=== PATIENT | female | born 1985 | race Caucasian/White ===

== ENCOUNTER 2016-09-07 01:01 | Inpatient (IN) ==
[2016-09-07] MEDS ORDERED: LACTATED RINGERS 500 ML IV PRN (01:22)
[2016-09-07] MEDS ORDERED: TERBUTALINE 1 MG/1 ML VIAL SUBCUT PRN (01:22)
[2016-09-07] MEDS ORDERED: ONDANSETRON 4 MG/2 ML VIAL IV PRN (01:22)
[2016-09-07] MEDS: LACTATED RINGERS 1,000 ML IV SCH ×3 (01:30→10:43)
[2016-09-07] MEDS: AMPICILLIN INJ 2,000 MG in SODIUM CHLORIDE 0.9% 100 ML IV SCH ×2 (02:12→07:24)
[2016-09-07 02:25] LABS: Basophils % 0.1 % (0.0-0.8); Eosinophils # 0.1 10*3/uL (0.0-0.87); Eosinophils % 0.4 % (0.00-10.9); Hematocrit 35.8 VOL% (35.7-47.0); Hemoglobin 12.2 GM/DL (12.0-16.0); Immature Granulocytes % 0.6 %; Immature Granulocytes Absolute 0.07 #; Lymphocytes # 2.3 10*3/uL (1.4-4.0); Lymphocytes % 19.6 % (21.3-54.2); Mean Corpuscular HGB Conc 34.1 GM/DL (32-36); Mean Corpuscular Hemoglobin 29 PG (27-34); Mean Corpuscular Volume 86.3 FL (87-102); Mean Platelet Volume 10.8 FL (9.6-12.0); Monocytes % 8.3 % (1.7-12.7); Neutrophils # 8.4 10*3/uL (1.4-7.4); Platelet Count 250 T/CUMM (130-400); Red Blood Count 4.15 MC/CUMM (3.8-5.5); Red Cell Distribution Width 13.8 % (9.3-17.3); White Blood Count 11.8 T/CUMM (4-12)
[2016-09-07] MEDS ORDERED: OXYTOCIN/LR 20 UNIT/1,000 ML BAG IV SCH (03:00)
[2016-09-07] MEDS: MEPERIDINE 50 MG/1 ML VIAL IV PRN ×2 (05:12→12:07)
[2016-09-07] MEDS ORDERED: FAMOTIDINE 20 MG/2 ML VIAL IV ONE (07:06)
[2016-09-07] MEDS ORDERED: hydrOXYzine HCL 25 MG/1 ML VIAL IM PRN (07:06)
[2016-09-07] MEDS ORDERED: ePHEDrine 50 MG/ML AMP IV PRN (07:06)
[2016-09-07] MEDS ORDERED: PROMETHAZINE 25 MG/1 ML VIAL IM ONE (07:06)
[2016-09-07] MEDS ORDERED: CITRIC ACID/SODIUM CITRATE 30 ML UDCUP PO ONE (07:06)
[2016-09-07] MEDS ORDERED: diphenhydrAMINE 50 MG/1 ML VIAL IV PRN (07:06)
[2016-09-07] MEDS ORDERED: fentaNYL 2 MCG/ROPIV 0.2% EPID 150 ML EPIDURAL SCH (07:06)
--- NOTE | 2016-09-07 09:11 | OB/GYN History & Physical ---
History of Present Illness Chief complaint: in for SROM @ early term History of present illness: Ms. Guidry is a 31 year old female 3 para 2 living 2. Her RAMESH is 02/2019 estimated gestational age of 37 weeks and 1 day. She presents in labor department with spontaneous rupture membranes with clear fluid at early term . The risks and benefits of been thoroughly discussed with this patient significant other plan of care has been discussed with Dr. Chandra all parties are minimal plan. Negative Corazon Mccord she D received routine care. Her course has been uneventful. Labs: She is O+, hepatitis B is negative, rubella is immune, RPR is nonreactive, HIV is negative, hepatitis B is negative, and GBS culture is negative. Review of system is negative with exception of spontaneous rupture membranes at 37 weeks. Home Medications Medication Instructions Recorded Confirmed Type Pnv95/Ferrous Fumarate/FA 1 each PO DAILY 09/07/16 09/07/16 History [ Tablet] Allergies Allergy/AdvReac Type Severity Reaction Status Date / Time No Known Allergies Allergy Verified 09/07/16 01:11 Medical,Surgical,& Family Hx - Medical History Medical History: noncontributory - Surgical History Reproductive Surgeries: Surgical HX of;: Breast Surgery (Breast augmentation 2007) - Family History Family History: noncontributory - Social History Smoking Status: Never smoker Frequency of Alcohol Use: None Type of Drug Use: None Marital Status: Single Lives With:: Spouse Functional capacity: independent ambulation 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 - Constitutional Vitals: Vital Signs Temp Pulse Resp BP 09/07/16 04:00 97.9 F 94 H 18 116/67 General appearance: no acute distress - Antepartum / Post Antpartum Exam Cervix -Dilatation: 4 cm Effacement: 80% Station: -1 Rupture: SROM with clear fluid Presentation: vtx Heart Rate: 140-150s Breast: bilateral: normal Abdomen obstetrics: Present: bowel sounds normal Vagina: Present: normal moisture Uterus exam: Present: enlarged - Respiratory Respiratory exam: Present: clear to auscultation bilaterally - Cardiovascular Cardiovascular exam: Present: regular rate and rhythm - GI/Abdominal GI/Abdominal exam: Present: normal bowel sounds, soft - Extremities Exam Extremities exam: Present: normal inspection - Neurological Exam Neurological exam: Present: alert, oriented X3 - Psychiatric Psychiatric exam: Present: normal affect, normal mood - Skin Skin exam: Present: normal color, warm Assessment and Plan (1) Term Status: Acute Assessment and plan: Admit IV Fluids IV Pitocin per protocol Epidural if desired Anticipate Current Visit: Yes (2) Spontaneous rupture of amniotic membranes Status: Acute Current Visit: Yes Results - Labs CBC & BMP: 09/07/16 01:45
[2016-09-07] MEDS ORDERED: ePHEDrine 50 MG/ML AMP ONE (10:32)
--- NOTE | 2016-09-07 13:44 | Event Note ---
HPI: Ms. Guidry presented to the labor department with spontaneous rupture membranes at 37 weeks. The risks and benefits were thoroughly discussed with the patient. She was admitted for active management of labor. The risk and benefits were thoroughly discussed with this patient and significant other plan of care was discussed with Dr. Chandra and all parties were in agreement with plan. Stage I: The patient was admitted she received IV fluids and IV Pitocin per protocol she progressed in labor with a CAT 1 tracing. She received an epidural for pain control. Her vital signs and were stable. The patient had an uneventful course of labor. Stage II: The patient was complete and was instructed to push after she was noted to be at a +1 station. She pushed for approximately 10 minutes after which time the infant's head was then delivered. A nuchal cord 1 was noted and reduced. The remainder of the infant was delivered at 1301, a viable female infant was noted. The infant was placed on the mom's abdomen for skin to skin bonding. Apgars were 9 at 1 minute and 9 at 5 minutes. weight was 6 pounds and 12 ounces. A cord pH was obtained and sent to the lab. Stage III: Spontaneous delivery of a Chase placenta with a three-vessel cord noted. The placenta was further examined. Be grossly intact. The vagina and cervix was inspected with no tears or lacerations noted. Estimated blood loss was approximately 50 mL. At the time of dictation mother and baby are both in stable condition.
[2016-09-07] MEDS ORDERED: LANOLIN 50% CREAM 0.3 OZ TUBE TOP PRN (13:45)
[2016-09-07] MEDS ORDERED: DIPH/TET/ACEL PERT BOOSTER VACCINE 0.5 ML VIAL IM ONE (13:45)
[2016-09-07] MEDS ORDERED: HYDROCORTISONE 2.5% RECTAL CREAM 30 GM TUBE TOP PRN (13:45)
[2016-09-07] MEDS ORDERED: ACETAMINOPHEN 325 MG TABLET PO PRN (13:45)
[2016-09-07] MEDS ORDERED: MEASLES/MUMPS/RUBELLA VACCINE 0.5 ML VIAL SUBCUT ONE (13:45)
[2016-09-07] MEDS ORDERED: RHO(D) IMMUNE GLOBULIN 300 MCG SYRINGE IM ONE (13:45)
[2016-09-07] MEDS ORDERED: BENZOCAINE 20%/MENTHOL 0.5% SPRAY 56 GM CAN TOP PRN (13:45)
[2016-09-07] MEDS ORDERED: WITCH HAZEL PADS 100/JAR TOP PRN (13:45)
[2016-09-07] MEDS ORDERED: OXYTOCIN/LR 20 UNIT/1,000 ML BAG IV ONE (13:45)
[2016-09-07] MEDS ORDERED: BISACODYL 10 MG SUPP RECTAL PRN (13:45)
[2016-09-07] MEDS ORDERED: ACETAMINOPHEN/CODEINE 300-30 MG TABLET PO PRN (13:47)
[2016-09-07 14:01] LABS: Apearance,Urine CLEAR (Clear); Bilirubin,Urine Negative (Negative); Blood, Urine Negative (Negative); Glucose,Urine (UA) Negative (Negative); Ketones,Urine Negative (Negative); Mucus,Urine Occasional /LPF (Occasional); Nitrite,Urine Negative (Negative); Protein,Urine Negative; RBC,Urine <1 /HPF (0-4); Squamous Epithelial Cell,Urine Occasional /HPF (0-10); Urine Color Yellow (Yellow); Urine Specific Gravity 1.018 (1.001-1.035); Urine Urobilinogen < 2.0 EU/DL (0.2-1.0); WBC,Urine 1 /HPF (0-6)
[2016-09-07] MEDS: IBUPROFEN 800 MG TABLET PO PRN ×2 (16:28→23:00)
[2016-09-07] MEDS: oxyCODONE/ACETAMINOPHEN 5-325 MG TABLET PO PRN (20:47)
[2016-09-07] MEDS: DOCUSATE SODIUM 100 MG CAPSULE PO SCH (20:48)
[2016-09-08] MEDS: oxyCODONE/ACETAMINOPHEN 5-325 MG TABLET PO PRN ×2 (04:45→20:20)
[2016-09-08 06:35] LABS: Basophils % 0.3 % (0.0-0.8); Eosinophils # 0.1 10*3/uL (0.0-0.87); Eosinophils % 0.8 % (0.00-10.9); Hematocrit 35.9 VOL% (35.7-47.0); Hemoglobin 12.1 GM/DL (12.0-16.0); Immature Granulocytes % 0.5 %; Immature Granulocytes Absolute 0.06 #; Lymphocytes # 2.6 10*3/uL (1.4-4.0); Lymphocytes % 21.7 % (21.3-54.2); Mean Corpuscular HGB Conc 33.7 GM/DL (32-36); Mean Corpuscular Hemoglobin 29 PG (27-34); Mean Corpuscular Volume 87.3 FL (87-102); Mean Platelet Volume 10.7 FL (9.6-12.0); Monocytes # 0.9 10*3/uL (0.11-0.8); Monocytes % 7.8 % (1.7-12.7); Neutrophils # 8.3 10*3/uL (1.4-7.4); Neutrophils % 68.9 % (38.7-73.9); Platelet Count 218 T/CUMM (130-400); Red Blood Count 4.11 MC/CUMM (3.8-5.5)
[2016-09-08] MEDS: DOCUSATE SODIUM 100 MG CAPSULE PO SCH ×2 (08:57→20:20)
[2016-09-08] MEDS: IBUPROFEN 800 MG TABLET PO PRN ×2 (10:28→20:20)
--- NOTE | 2016-09-08 13:57 | OB/GYN Progress Note ---
Assessment and Plan (1) Term Status: Acute Assessment and plan: Admit IV Fluids IV Pitocin per protocol Epidural if desired Anticipate Current Visit: Yes (2) Spontaneous rupture of amniotic membranes Status: Acute Current Visit: Yes (3) Vaginal delivery Status: Acute Assessment and plan: initiate routine orders Current Visit: Yes MATERIAL WORKER - PN: Subj Interval history: Stable. Bonding well with infant. Exam MATERIAL WORKER - Constitutional Vitals: Vital Signs Temp Pulse Resp BP Pulse Ox 09/08/16 11:19 97.2 F L 104 H 20 128/77 98 09/08/16 07:32 97.4 F L 90 18 115/69 97 09/08/16 04:00 96.6 F L 93 H 18 108/75 99 09/08/16 02:00 20 09/08/16 00:00 97 F L 100 H 18 102/57 97 09/07/16 20:00 97.9 F 102 H 18 139/74 97 09/07/16 18:33 98.0 F 107 H 20 129/72 97 09/07/16 17:45 115 H 20 128/87 97 09/07/16 16:45 97.1 F L 110 H 20 118/78 97 09/07/16 16:15 112 H 20 134/86 97 09/07/16 15:45 97.1 F L 111 H 20 137/87 97 General appearance: no acute distress - Antepartum / Post Post Exam Breast: bilateral: normal Abdomen obstetrics: Present: bowel sounds normal Vagina: Present: discharge (light lochia Rubra) Uterus exam: Present: enlarged (fundus firm and midline with no tenderness) Anus/Rectum: Present: normal perianal skin - Respiratory Respiratory exam: Present: clear to auscultation bilaterally - Cardiovascular Cardiovascular exam: Present: regular rate and rhythm - GI/Abdominal GI/Abdominal exam: Present: normal bowel sounds, soft - Extremities Exam Extremities exam: Present: normal inspection - Neurological Exam Neurological exam: Present: alert, oriented X3 - Psychiatric Psychiatric exam: Present: normal affect, normal mood - Skin Skin exam: Present: normal color, warm Results - Labs CBC & BMP: 09/08/16 06:08
--- NOTE | 2016-09-08 14:01 | Discharge Summary ---
Hospital Course - Hospital Course Hospital Course: Ms. Guidry is a 31-year-old female who presented to the labor department with spontaneous rupture membranes. She subsequently delivered a viable infant with no complications. She was followed a normal course and she has done well. Her bleeding is minimal no odor. The perineum is intact with no edema. She is bonding well with her . She is voiding without difficulty. Her bowel sounds are positive she has had a bowel movement. Her vital signs and lab values are stable. She will be discharged home with scripts for pain and follow-up appointment in our office. Diagnosis - Discharge Diagnosis (1) Term Status: Acute (2) Spontaneous rupture of amniotic membranes Status: Acute (3) Vaginal delivery Status: Acute Specialty Discharge - Follow Up or Referrals Follow up with: Michele Chandra MD [Primary Care Provider] - 10/18/16 2:00 pm Discharge Plan - Discharge Data Disposition: Disch To Home/Self Care Condition at Discharge: Stable Discharge Diet: regular diet Activity: resume usual activities as tolerated Hygiene: may shower Weight Bearing at Discharge: weight bear as tolerated Driving: no restrictions Contact your physician if you experience:: fever over 101, pain uncontrolled by pain medications - Discharge Medications New Acetamin/Codeine 300-30 Tab [Tylenol/Codeine #3] 2 tablet PO Q4H PRN #30 tablet PRN Reason: Pain Mild (1-3) Ibuprofen Tab [Motrin Tab] 800 mg PO Q6H PRN #30 tablet PRN Reason: Pain Moderate (4-7) No Action Pnv95/Ferrous Fumarate/FA [ Tablet] 1 each PO DAILY - Follow Up or Referral Follow Up: Michele Chandra MD [Primary Care Provider] - 10/18/16 2:00 pm - Forms/Instructions Exam - Constitutional Vitals: Period Temp Pulse Resp BP Sys/Pastor Pulse Ox Last 24 Hr 97 F-97.9 F 81-105 18-20 109-135/64-76 96-97 General appearance: no acute distress - Respiratory Respiratory exam: Present: clear to auscultation bilaterally - Cardiovascular Cardiovascular exam: Present: regular rate and rhythm - GI/Abdominal GI/Abdominal exam: Present: normal bowel sounds, soft - Extremities Exam Extremities exam: Present: normal inspection - Neurological Exam Neurological exam: Present: alert, oriented X3 - Psychiatric Psychiatric exam: Present: normal affect, normal mood - Skin Skin exam: Present: normal color, warm DS: Provider Date of admission: 09/07/16 01:22 Primary care physician: Michele Chandra MD Attending physician on admission: Michele Chandra MD Consults: 09/07/16 01:22 Consult to Anesthesiology [CONS] Routine Consulting Provider: Reason for Anesthesiology: Epidural Consult Comment: Epidural for pain managment 09/07/16 13:45 Consult to Construction Contractor [CONS] Routine Consult Construction Contractor: Breast Feeding Discharging clinician: Jessa Fowler CNM Expected date of discharge: 09/09/16
[2016-09-09] MEDS: oxyCODONE/ACETAMINOPHEN 5-325 MG TABLET PO PRN (04:14)
[2016-09-09] MEDS: IBUPROFEN 800 MG TABLET PO PRN ×2 (04:14→12:35)
[2016-09-09 07:34] VITALS: BP 109/64
[2016-09-09] MEDS: DOCUSATE SODIUM 100 MG CAPSULE PO SCH (09:00)
== END 2016-09-09 14:25 | disposition home or self-care (01) | DRG 775 ==
LOC: N.LDOUT 01:01 → N.LD 01:04 → N.OB 15:42
PROVIDERS: ADMIT Obstetrics & Gynecology; ATTEND Obstetrics & Gynecology